=== PATIENT | female | born 1980 | race Caucasian/White ===

== ENCOUNTER 2019-04-01 22:06 | Emergency (ER) | payer MEDICAID ==
[~2019-04-01] VITALS: Ht 147.3 cm; Wt 88.9 kg
[2019-04-01 22:20] VITALS: BP 109/57
--- NOTE | 2019-04-01 22:20 | NUR ---
TO BED # 08 AMBULATORY
--- NOTE | 2019-04-01 22:42 | NUR ---
FIRST CONTACT PATIENT C/O RLQ PAIN X 1 WEEK. PATIENT ENDORSES THAT PAIN IS RLQ, UNPROVOKED, NONRADIATING, ASSOCIATED WITH +N/V, NO DIARRHEA NO FEVER/CHILLS. PATIENT STATES PAIN RESEMBLES "BURNING SENSATION" PATIENT GCS 15, AAOX4, PERRLA 3/2MM BILAT, NEUROLOGICALLY INTACT. PATIENT BREATHING IS EVEN AND UNLABORED, EQUAL RISE AND FALL OF CHEST. PATIENT DENIES ANY CP/SOB. ABD IS SOFT, ROUND, TENDER TO TOUCH, +BS X4. NO ACUTE DISTRESS NOTED, BED IN LOWEST POSITION SIDE RAILS UP X 2 FOR SAFETY, WILL CONTINUE TO MONITOR
--- NOTE | 2019-04-01 22:46 | NUR ---
38 Y/O FEMALE C/O LOWER ABD PAIN,NAUSEA, H/A FOR A WEEK. A/O X4 FOLLOWS COMMANDS. PAIN IS AN ACUTE/DULL 5/10 THAT STARTS IN THE LOWER ABDOMEN RADIATING TO THE RIGHT FLANK AND LOWER BACK. NO LOSS OF APPETITE NOTED. +N/V BOWEL SOUNDS HEARD ON FOUR QUADRANTS. SOFT NONTENDER ABDOMEN NOTED. ERMD MADE AWARE. SIDE RAILSX1. PMH: DENIES RX:DENIES ALLERGIES: PCNS, CODEIN, MORPHINE
--- NOTE | 2019-04-01 23:27 | NUR ---
DR. MA EVALUATING PT AT BEDSIDE
[2019-04-02 00:24] LABS: BASOPHILS % (AUTO) 0.3 % (0.0-2.0); EOSINOPHILS # (AUTO) 0.1 K/uL (0-0.4); EOSINOPHILS % (AUTO) 2.2 % (0.0-4.0); HEMATOCRIT 32.4 % (36-48); HEMOGLOBIN 10.7 g/dL (12.0-16.0); LYMPHOCYTES # (AUTO) 1.5 K/uL (2.5-16.5); LYMPHOCYTES % (AUTO) 23.3 % (20.5-51.1); MEAN CORPUSCULAR HEMOGLOBIN 27 pg (27-31); MEAN CORPUSCULAR HGB CONC 33 g/dL (33-37); MEAN CORPUSCULAR VOLUME 81.6 fL (80-94); MONOCYTES # (AUTO) 0.4 K/uL (0.8-1.0); MONOCYTES % (AUTO) 6.1 % (1.7-9.3); NEUTROPHILS # (AUTO) 4.4 K/uL (1.8-7.7); NEUTROPHILS % (AUTO) 68.1 % (42.2-75.2); PLATELET COUNT (AUTO) 259 K/uL (140-450); RED BLOOD CELL COUNT(AUTO) 3.97 MIL/uL (4.20-5.40); RED CELL DISTRIBUTION WIDTH 14.4 % (11.6-13.7); WHITE BLOOD COUNT (AUTO) 6.5 K/uL (4.8-10.8)
[2019-04-02 00:30] LABS: APPEARANCE,URINE HAZY (CLEAR); BILIRUBIN,URINE NEGATIVE (NEGATIVE); BLOOD, URINE NEGATIVE (NEGATIVE); COLOR,URINE YELLOW (YELLOW); LEUKOCYTE ESTERASE ,URINE TRACE (NEGATIVE); NITRITE, URINE NEGATIVE (NEGATIVE); PH,URINE 6.5 (5.0-9.0); UGLUCOSE NEGATIVE (NEGATIVE)
[2019-04-02 00:50] LABS: RBC,URINE NONE SEEN /HPF (0-5)
[2019-04-02 01:09] LABS: CARBON DIOXIDE 22.9 mmol/L (21-32); POTASSIUM 3.9 mmol/L (3.5-5.1)
[2019-04-02 01:10] LABS: CREATININE 0.5 mg/dL (0.6-1.3); TOTAL BILIRUBIN 0.3 mg/dL (0.0-1.0)
[2019-04-02 01:11] LABS: ALBUMIN 3.2 g/dL (3.4-5.0)
[2019-04-02 03:23] VITALS: BP 109/57
--- NOTE | 2019-04-02 03:23 | NUR ---
Patient discharged with v/s stable. Written and verbal after care instructions given and explained. Patient alert, oriented and verbalized understanding of instructions. Ambulatory with steady gait. All questions addressed prior to discharge. ID band removed. Patient advised to follow up with PMD. Rx of VITAMIN given. Patient educated on indication of medication including possible reaction and side effects. Opportunity to ask questions provided and answered.
== END 2019-04-02 03:23 | disposition home or self-care (01) ==
LOC: MED 22:06
DX: O26.891 Other specified pregnancy related conditions, first trimester (principal); R10.31 Right lower quadrant pain; R11.2 Nausea with vomiting, unspecified; Z3A.01 Less than 8 weeks gestation of pregnancy
CPT/HCPCS: 36415; 76817; 80053; 81001; 81025; 84702; 85025; 86900; 86901; 87086; 99284